=== PATIENT | female | born 1975 | race Caucasian/White ===

== ENCOUNTER → 2018-10-15 09:13 | Outpatient (CLI) | payer OTHER, SELFPAY | PROVIDERS: Family Provider Family Medicine; PCP Family Medicine; Referring Provider Obstetrics & Gynecology Maternal & Fetal Medicine; Visit Provider Obstetrics & Gynecology Maternal & Fetal Medicine | DX: R30.0 Dysuria (principal) | CPT/HCPCS: 87086; 87088 ==